=== PATIENT | female | born 1955 ===

== ENCOUNTER 2020-02-16 01:46 | Observation (INO) | payer MEDICARE ==
[~2020-02-16] VITALS: Ht 160 cm; Wt 80.9 kg
[2020-02-16] MEDS ORDERED: SODIUM CHLORIDE 0.9% 1,000 ML IV SCH (05:00)
[2020-02-16 05:03] LABS: MICROSCOPIC INDICATED
--- NOTE | 2020-02-16 05:19 | NUR ---
HT 5FT 3IN WEIGHT 173LBS ALLG: CODEINE
[2020-02-16] MEDS ORDERED: PLEASE ENTER ALLERGIES MC SCH (05:30)
[2020-02-16] MEDS ORDERED: PLEASE ENTER HEIGHT AND WEIGHT MC SCH (05:30)
--- NOTE | 2020-02-16 05:30 | NUR ---
IVF INFUSING, ALL BELONGINGS PLACED ON GURNEY. READY FOR TRANSPORT. M
[2020-02-16 06:17] VITALS: BP 151/86
[2020-02-16] MEDS ORDERED: ASPI81TA59 PO (06:50)
[2020-02-16] MEDS ORDERED: LISI10TA2 PO (06:50)
[2020-02-16] MEDS ORDERED: ROSU5TAB PO (06:50)
[2020-02-16] MEDS ORDERED: ONDANSETRON ODT 4 MG PO PRN (08:30)
[2020-02-16] MEDS ORDERED: morphine SULFATE 10 MG/ML, 1ML IVPush PRN (08:30)
[2020-02-16] MEDS: KETOROLAC 30 MG/1 ML IV PRN ×2 (08:59→15:13)
[2020-02-16] MEDS: ONDANSETRON 2MG/ML, 2ML IVPush PRN ×2 (09:00→15:16)
[2020-02-16] MEDS ORDERED: CHLORHEXIDINE 15 ML UDC MM STA (10:08)
[2020-02-16] MEDS ORDERED: CHLORHEXIDINE 15 ML UDC ONE (10:16)
[2020-02-16] MEDS ORDERED: SCOPOLAMINE 1MG PATCH TD ONE (11:21)
[2020-02-16] MEDS ORDERED: FENTANYL PF 250 MCG/5ML ONE (11:30)
[2020-02-16] MEDS ORDERED: SUCCINYLCHOLINE 20 MG/ML, 10ML ONE (11:30)
[2020-02-16] MEDS ORDERED: DEXAMETHASONE 4 MG/ML, 1ML ONE (11:30)
[2020-02-16] MEDS ORDERED: ONDANSETRON 2MG/ML, 2ML ONE (11:30)
[2020-02-16] MEDS ORDERED: ESMOLOL 100 MG/10 ML ONE (11:30)
[2020-02-16] MEDS ORDERED: CEFAZOLIN 1,000 MG ONE (11:30)
[2020-02-16] MEDS ORDERED: SCOPOLAMINE 1MG PATCH TD SCH (11:30)
[2020-02-16] MEDS ORDERED: PROPOFOL 10 MG/ML, 20ML ONE (11:30)
[2020-02-16] MEDS ORDERED: LABETALOL 5MG/ML, 20ML IV PRN (12:00)
[2020-02-16] MEDS ORDERED: KETOROLAC 30 MG/1 ML IVPush PRN (12:00)
[2020-02-16] MEDS ORDERED: EPHEDRINE 50 MG/ML, 1ML IVPush PRN (12:00)
[2020-02-16] MEDS ORDERED: HYDROmorphone 1 MG/ML, 1ML INJ IVPush PRN (12:00)
[2020-02-16] MEDS ORDERED: OXYcodone 5 MG/5 ML ORAL.SOL UDC PO PRN (12:00)
[2020-02-16] MEDS ORDERED: FENTANYL PF 100 MCG/2ML IV PRN (12:00)
[2020-02-16] MEDS ORDERED: LORazepam 2 MG/ML, 1ML IVPush PRN (12:00)
[2020-02-16] MEDS ORDERED: ONDANSETRON 2MG/ML, 2ML IVPush PRN (12:00)
[2020-02-16] MEDS ORDERED: hydrALAzine 20 MG/ML, 1ML IV PRN (12:00)
[2020-02-16] MEDS ORDERED: PROMETHAZINE 12.5 MG SUPP PR PRN (12:00)
[2020-02-16] MEDS ORDERED: MEPERIDINE/PF 25MG/0.5ML IVPush PRN (12:00)
[2020-02-16] MEDS ORDERED: OMNIPAQUE 350 MG/ML, 50 ML BOTTLE ONE (12:30)
[2020-02-16 13:35] VITALS: BP 159/96
[2020-02-16] MEDS: SODIUM CHLORIDE 0.9% 1,000 ML IV SCH ×2 (13:41→14:59)
[2020-02-16] MEDS: CEFTRIAXONE PMX 1GM/50ML 50 ML IV SCH (13:51)
[2020-02-16] MEDS: NS + 20MEQ KCL 1,000 ML IV SCH (13:54)
[2020-02-16] MEDS ORDERED: LEVO75TA5 PO (14:06)
[2020-02-16] MEDS ORDERED: SEMA1PEN SQ (14:06)
[2020-02-16] MEDS: INSULIN LISPRO 100 UNITS/ML, PEN SQ-INSULIN SCH ×3 (14:10→20:27)
[2020-02-16 19:42] VITALS: BP 155/80
[2020-02-16] MEDS ORDERED: TEMAZEPAM 15 MG CAPSULE PO PRN (21:00)
[2020-02-17 01:11] VITALS: BP 137/89
[2020-02-17] MEDS: NS + 20MEQ KCL 1,000 ML IV SCH ×2 (02:52→13:07)
[2020-02-17 06:03] LABS: ALANINE AMINOTRANSFERASE 12 U/L (12-78); ANION GAP 7 mmol/L (5-15); CHLORIDE 108 mmol/L (98-107)
[2020-02-17 06:06] LABS: ALKALINE PHOSPHATASE 90 U/L (45-117); BILIRUBIN,TOTAL 0.5 mg/dL (0.2-1.0); CREATININE 0.81 mg/dL (0.55-1.02); TOTAL PROTEIN 6.9 g/dL (6.4-8.2)
[2020-02-17 06:09] LABS: BASOPHILS % (AUTO) 0 % (0-1); EOSINOPHILS % (AUTO) 0 % (1-7); LYMPHOCYTES % (AUTO) 13 % (22-44); MEAN CORPUSCULAR HEMOGLOBIN 31.9 pg (27.0-34.8); MEAN CORPUSCULAR HGB CONC 33.6 g/dL (32.4-35.8); MEAN PLATELET VOLUME 7.4 fL (7.4-10.4); MONOCYTES % (AUTO) 4 % (2-9); NEUTROPHILS % (AUTO) 84 % (42-75); PLATELET COUNT 223 x10^3/uL (130-400); RED BLOOD COUNT 4.36 x10^6/uL (3.82-5.3); RED CELL DISTRIBUTION WIDTH 12.9 % (9.6-15.2)
[2020-02-17 06:49] LABS: MD SCAN
[2020-02-17 07:15] VITALS: BP 150/88
[2020-02-17] MEDS: INSULIN LISPRO 100 UNITS/ML, PEN SQ-INSULIN SCH ×2 (08:30→12:00)
[2020-02-17] MEDS ORDERED: PHENAZOPYRIDINE 200 MG TABLET PO PRN (10:00)
[2020-02-17] MEDS: CEFTRIAXONE PMX 1GM/50ML 50 ML IV SCH (10:04)
[2020-02-17 12:11] VITALS: BP 136/76
[2020-02-17] MEDS ORDERED: CEFD300C37 PO (12:50)
[2020-02-17] MEDS ORDERED: PHEN-583 PO (12:50)
[2020-02-17] MEDS ORDERED: ONDA4TAB7 PO (13:00)
== END 2020-02-17 15:34 | disposition home or self-care (01) ==
LOC: ED 01:58 → EDIP 05:41 → INTOOBSV 05:41 → 3N 06:12 → DCLOUNGE 02-17 15:29
PROVIDERS: ADMIT Family Medicine; ATTEND Internal Medicine
DX: N13.2 Hydronephrosis with renal and ureteral calculous obstruction (principal); Z20.828 Contact with and (suspected) exposure to other viral communicable diseases; E11.9 Type 2 diabetes mellitus without complications; I10 Essential (primary) hypertension; N39.0 Urinary tract infection, site not specified; E78.5 Hyperlipidemia, unspecified; E03.9 Hypothyroidism, unspecified; I25.10 Atherosclerotic heart disease of native coronary artery without angina pectoris; Z79.82 Long term (current) use of aspirin; Z79.899 Other long term (current) drug therapy; Z95.5 Presence of coronary angioplasty implant and graft
CPT/HCPCS: 36415; 52356; 74420; 80053; 81001; 82962; 85025; 87635; 96361; 96365; 96366; 96375; 96376; 99284; C1726; C1758; C2617; G0378; J0330; J0690; J0696; J1100; J1885; J2405; J2704; J3010; J3480; J7030; Q9967; 96360; 99285